=== PATIENT | male | born 1975 | race Caucasian/White ===

== ENCOUNTER 2021-01-09 10:39 | Emergency (ER) | payer BC ==
[2021-01-09] MEDS ORDERED: NAPROSYN500 MG PO (16:15)
[2021-01-09] MEDS ORDERED: CYCLOBENZAPRINE10 MG PO (16:15)
== END 2021-01-09 16:26 | disposition home or self-care (01) ==
LOC: ER1 10:39
DX: R07.89 Other chest pain (principal); M25.511 Pain in right shoulder; X50.9XXA Other and unspecified overexertion or strenuous movements or postures, initial encounter; Y92.89 Other specified places as the place of occurrence of the external cause; Y99.0 Civilian activity done for income or pay
CPT/HCPCS: 71046; 82550; 82553; 83874; 84484; 93005; 99285

== ENCOUNTER → 2021-04-02 | Outpatient (CLI) | payer OTHER, BC ==
[~2021-04-02] MED LIST: CYCLOBENZAPRINE10 MG PO; NAPROSYN500 MG PO
== END ==
LOC: RAD 11:41
DX: M25.562 Pain in left knee (principal)
CPT/HCPCS: 73562

== ENCOUNTER → 2021-04-09 | Outpatient (CLI) | payer OTHER | LOC: MRI 13:39 | DX: M25.562 Pain in left knee (principal); S83.242A Other tear of medial meniscus, current injury, left knee, initial encounter; M25.462 Effusion, left knee | CPT/HCPCS: 73721 ==